=== PATIENT | male | born 1990 | race Caucasian/White ===

== ENCOUNTER 2024-12-11 10:17 | Emergency (ER) | payer OTHER, SELFPAY ==
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
[2024-12-11 10:33] VITALS: BP 137/96; PULSE 63; RESP 18; TEMP 36.5; O2SAT 98
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
== END 2024-12-11 12:12 | disposition left against medical advice (07) ==
PROVIDERS: Emergency Provider Nurse Practitioner Family
DX: S50.01XA Contusion of right elbow, initial encounter (principal); V28.49XA Other motorcycle driver injured in noncollision transport accident in traffic accident, initial encounter
CPT/HCPCS: 73080; 99203; G0463